=== PATIENT | female | born 1995 | race Caucasian/White ===

== ENCOUNTER → 2019-07-03 | Outpatient (CLI) | payer OTHER ==
[~2019-07-03] MED LIST: CIPR500T3
--- NOTE | 2019-07-03 17:33 | REP ---
Right foot four views: There is a radiopaque foreign body projected within the soft tissues along the plantar surface of the tarsal ossicles. No fracture or dislocation. Electronically Signed by Jonas Scanlon MD 07/03/2019 05:24 P
== END ==
LOC: M LRY 17:04
PROVIDERS: ATTEND Nurse Practitioner Family
DX: S91.301D Unspecified open wound, right foot, subsequent encounter (principal); X58.XXXD Exposure to other specified factors, subsequent encounter; Y92.89 Other specified places as the place of occurrence of the external cause
CPT/HCPCS: 73630; 87070; 87077; 87186; 90471; 90715; G0463

== ENCOUNTER → 2019-08-05 | Outpatient (CLI) | payer OTHER ==
--- NOTE | 2019-08-05 14:07 | REP ---
ULTRASOUND RIGHT FOOT SOFT TISSUES: Real-time sonographic evaluation of the right foot soft tissues performed in the plantar region where there are suspected retained foreign bodies in the soft tissues. In the plantar soft tissues there are two hyperechoic structures which appear to represent foreign bodies. One of them measures 5.0 x 4.0 x 3.0 mm and is 4.0 mm from the skin surface. The other measures 8.0 x 2.0 x 1.0 mm and is 8.0 mm from the skin surface. These may lie within the plantar tendon or adjacent flexor muscles or tendons. No fluid collection is seen. Unreviewed
--- NOTE | 2019-08-05 14:09 | REP ---
RIGHT FOOT, TWO VIEWS: Two views of the right foot performed. No fracture, dislocation, or intrinsic bone disease is visualized. In the plantar soft tissues of the midfoot there appear to be two radiopaque foreign bodies in the soft tissues. There is a more anterior superficial foreign body which measures about 5.0 x 3.0 mm and a slightly deeper more posterior foreign body in the adjacent soft tissues measuring 8.0 x 2.0 mm. No other abnormalities are seen. Unreviewed
== END ==
LOC: M RAD 11:48
PROVIDERS: ATTEND Surgery
DX: M79.5 Residual foreign body in soft tissue (principal)